=== PATIENT | male | born 1990 | race Caucasian/White ===

== ENCOUNTER 2017-11-11 13:34 | Emergency (ER) | payer BC ==
[2017-11-11] MEDS ORDERED: silver sulfADIAZINE 1% CREAM 25GM TUBE. TP (15:02)
[2017-11-11] MEDS ORDERED: DIPHTH,PERTUSS(ACELL),TET TOX 0.5 ML DISP.SYRIN. VAX IM (15:02)
[2017-11-11] MEDS ORDERED: NAPROXEN 500 MG TABLET (15:02)
[2017-11-11] MEDS ORDERED: HYDROcodone/APAP 5/325MG 1 TAB TABLET (15:02)
[2017-11-11] MEDS: silver sulfADIAZINE 1% CREAM 25GM TUBE. TP (15:06)
[2017-11-11] MEDS: NAPROXEN 500 MG TABLET PO (15:06)
[2017-11-11] MEDS: HYDROcodone/APAP 5/325MG 1 TAB TABLET PO (15:06)
[2017-11-11] MEDS: DIPHTH,PERTUSS(ACELL),TET TOX 0.5 ML DISP.SYRIN. VAX IM (15:07)
== END 2017-11-11 15:50 | disposition short-term general hospital (02) ==
LOC: ER 15:50
DX: T23.221A Burn of second degree of single right finger (nail) except thumb, initial encounter (principal); T23.101A Burn of first degree of right hand, unspecified site, initial encounter; S62.636A Displaced fracture of distal phalanx of right little finger, initial encounter for closed fracture; X08.8XXA Exposure to other specified smoke, fire and flames, initial encounter; Y93.89 Activity, other specified; Y92.89 Other specified places as the place of occurrence of the external cause; Y99.8 Other external cause status
CPT/HCPCS: 16000; 29130; 73130; 90471; 90715; 99285-25